=== PATIENT | female | born 2005 | race Two or more races ===

== ENCOUNTER 2024-11-15 17:42 | Emergency (ER) | payer OTHER ==
[~2024-11-15] VITALS: Ht 175.3 cm; Wt 71.2 kg
[2024-11-15 21:31] LABS: URINE APPEARANCE Cloudy; URINE BILIRRUBIN Negative (NEGATIVE); URINE BLOOD Negative; URINE COLOR Yellow; URINE KETONE Negative (NEGATIVE); URINE LEUKOCYTE Trace; URINE NITRATE Negative; URINE PROTEIN Negative (NEGATIVE)
[2024-11-15 21:32] LABS: URINE BACTERIA 3772.2 uL (0.0-1933); URINE EPITHELIAL CELLS 40.2 uL (0.0-38.8); URINE WBC 78.2 uL (0.0-23.2)
[2024-11-15 21:33] LABS: HEMATOCRIT 38.8 % (36.0-45.00); HEMOGLOBIN 13.7 g/dL (12.0-15.00); MEAN CELL VOLUME 89.7 fL (80.00-100.00); MEAN CORPUSCULAR HEMOGLOBIN 31.6 pg (27.00-32.0); MEAN CORPUSCULAR HGB CONC 35.3 g/dl (32.0-36.0); PLATELET COUNT 184 K/uL (150-450); RED BLOOD COUNT 4.33 M/uL (4.00-6.00); RED CELL DISTRIBUTION WIDTH 12.5 % (11.5-14.5)
[2024-11-15 21:43] LABS: URINE CAST 0.29 uL (0.0-1.40); URINE GLUCOSE 500 MG/DL (NEGATIVE); URINE RBC 1.1 uL (0.0-20.8)
[2024-11-15 21:55] LABS: ALBUMIN 3.5 gm/dL (3.4-5.0); BILIRUBIN TOTAL 0.25 mg/dL (0.3-1.2); CALCIUM 9.4 mg/dL (8.5-10.1); CREATININE SERUM 0.59 mg/dL (0.55-1.02); GFR 129.95; GLOBULINA 4.3 G/DL (2.4-3.5); POTASSIUM 3.73 mEq/L (3.5-5.1); TOTAL PROTEIN 7.8 gm/dL (6.4-8.2)
== END 2024-11-16 00:50 | disposition home or self-care (01) ==
LOC: ER 17:45
PROVIDERS: Preventive Medicine Public Health & General Preventive Medicine
DX: R10.30 Lower abdominal pain, unspecified (principal); Z3A.09 9 weeks gestation of pregnancy

== ENCOUNTER 2024-12-16 13:51 | Outpatient (CLI) | payer OTHER | END 2024-12-16 13:52 | disposition home or self-care (01) | LOC: PRENATAL 13:51 | PROVIDERS: ATTEND Obstetrics & Gynecology Maternal & Fetal Medicine | DX: O36.80X0 Pregnancy with inconclusive fetal viability, not applicable or unspecified (principal); Z36.82 Encounter for antenatal screening for nuchal translucency; Z36.0 Encounter for antenatal screening for chromosomal anomalies; Z14.8 Genetic carrier of other disease ==

== ENCOUNTER 2025-01-06 21:31 | Emergency (ER) | payer OTHER ==
[~2025-01-06] VITALS: Ht 172.7 cm; Wt 74.4 kg
[2025-01-06] MEDS ORDERED: VITATRUE COMBO1 EACH (21:38)
[2025-01-06 23:34] LABS: PH,URINE 6.5 (5.0-8.0); URINE APPEARANCE Cloudy; URINE BILIRRUBIN Negative (NEGATIVE); URINE BLOOD Negative; URINE COLOR Yellow; URINE KETONE Trace (NEGATIVE); URINE LEUKOCYTE Negative; URINE NITRATE Negative; URINE PROTEIN Negative (NEGATIVE)
[2025-01-06 23:37] LABS: HEMATOCRIT 35.4 % (36.0-45.00); HEMOGLOBIN 12.3 g/dL (12.0-15.00); MEAN CORPUSCULAR HEMOGLOBIN 31.2 pg (27.00-32.0); MEAN CORPUSCULAR HGB CONC 34.7 g/dl (32.0-36.0); PLATELET COUNT 148 K/uL (150-450); RED BLOOD COUNT 3.94 M/uL (4.00-6.00); RED CELL DISTRIBUTION WIDTH 12.6 % (11.5-14.5)
[2025-01-06 23:43] LABS: URINE BACTERIA 2387.8 uL (0.0-1933); URINE WBC 31.5 uL (0.0-23.2)
[2025-01-06 23:44] LABS: URINE GLUCOSE >=1000 MG/DL (NEGATIVE)
[2025-01-06 23:58] LABS: CREATININE SERUM 0.64 mg/dL (0.55-1.02); GFR 118.3; POTASSIUM 3.11 mEq/L (3.5-5.1)
== END 2025-01-07 00:35 | disposition home or self-care (01) ==
LOC: ER 21:34
PROVIDERS: Emergency Medicine
DX: O23.32 Infections of other parts of urinary tract in pregnancy, second trimester (principal); N39.0 Urinary tract infection, site not specified; Z3A.16 16 weeks gestation of pregnancy

== ENCOUNTER 2025-01-27 09:07 | Outpatient (CLI) | payer OTHER ==
[~2025-01-27 09:07] MED LIST: VITATRUE COMBO1 EACH
== END 2025-01-27 09:10 | disposition home or self-care (01) ==
LOC: PRENATAL 09:07
PROVIDERS: ATTEND Obstetrics & Gynecology Maternal & Fetal Medicine
DX: O44.00 Complete placenta previa NOS or without hemorrhage, unspecified trimester (principal); Z3A.20 20 weeks gestation of pregnancy

== ENCOUNTER → 2025-03-31 15:19 | Outpatient (CLI) | payer OTHER | END | disposition home or self-care (01) | LOC: PRENATAL 15:19 | PROVIDERS: ATTEND Obstetrics & Gynecology Maternal & Fetal Medicine | DX: O26.849 Uterine size-date discrepancy, unspecified trimester (principal); O36.8199 Decreased fetal movements, unspecified trimester, other fetus; O24.419 Gestational diabetes mellitus in pregnancy, unspecified control; Z3A.29 29 weeks gestation of pregnancy ==

== ENCOUNTER 2025-04-11 08:46 | Outpatient (CLI) | payer OTHER ==
[2025-04-11 08:03] VITALS: BP 105/58; O2SAT 98
[~2025-04-11 08:46] MED LIST changes: -ACETAMINOPHEN500 M2 PO
[2025-04-11] MEDS ORDERED: ONDANSETRON HCL 2 MG/ML VIAL ONE (09:43)
[2025-04-11] MEDS ORDERED: RINGERS SOLUTION,LACTATED 1,000 ML IV SCH (09:45)
[2025-04-11] MEDS ORDERED: ONDANSETRON 4 MG TAB.RAPDIS PO ONE (09:45)
[2025-04-11] MEDS ORDERED: ONDANSETRON HCL 2 MG/ML VIAL IV NR (09:55)
[2025-04-11] MEDS ORDERED: ACETAMINOPHEN500 M2 PO (10:15)
[2025-04-11 11:03] LABS: PH,URINE 6.5 (5.0-8.0); URINE APPEARANCE Clear; URINE BILIRRUBIN Negative (NEGATIVE); URINE BLOOD Negative; URINE COLOR Yellow; URINE LEUKOCYTE Negative; URINE NITRATE Negative; URINE PROTEIN 30 (NEGATIVE)
[2025-04-11 11:07] LABS: URINE BACTERIA 45.2 uL (0.0-1933); URINE EPITHELIAL CELLS 5.3 uL (0.0-38.8); URINE RBC 14.8 uL (0.0-20.8); URINE WBC 28.6 uL (0.0-23.2)
[2025-04-11 11:22] LABS: BASO % 0.2 % (0.1-1.2); EOS # 0.01 (0.04-0.54); EOS % 0.2 % (0.7-7.0); HEMATOCRIT 34.8 % (34.1-44.9); HEMOGLOBIN 11.8 g/dL (11.2-15.7); MEAN CORPUSCULAR HEMOGLOBIN 30.2 pg (25.6-32.2); MONO # 0.67 (0.24-0.82); NEUT # 4.26 (1.56-6.13); NEUT % 77.1 % (34.0-71.1); RED BLOOD COUNT 3.91 M/uL (3.93-5.22); RED CELL DISTRIBUTION WIDTH 13.2 % (11.6-14.4)
[2025-04-11 11:24] LABS: MONO % 12.1 % (4.7-12.5); PLATELET COUNT 117 K/uL (163-369)
[2025-04-11 11:29] LABS: URINE CAST 1.32 uL (0.0-1.40); URINE GLUCOSE 250 MG/DL (NEGATIVE); URINE KETONE 80 (NEGATIVE)
[2025-04-11 11:54] LABS: ALBUMIN 2.7 gm/dL (3.4-5.0); BILIRUBIN TOTAL 0.38 mg/dL (0.3-1.2); CALCIUM 8.5 mg/dL (8.5-10.1); CREATININE SERUM 0.41 mg/dL (0.55-1.02); GFR 197.78; GLOBULINA 3.8 G/DL (2.4-3.5); POTASSIUM 3.67 mEq/L (3.5-5.1); TOTAL PROTEIN 6.5 gm/dL (6.4-8.2)
[2025-04-11 12:53] VITALS: BP 110/67; O2SAT 99
[2025-04-11 15:08] VITALS: BP 105/68
[2025-04-11 19:34] VITALS: BP 109/58
[2025-04-11 20:36] VITALS: BP 109/58
== END 2025-04-11 20:45 | disposition home or self-care (01) ==
LOC: OBS/DEL 08:46
PROVIDERS: ATTEND Obstetrics & Gynecology
DX: O26.893 Other specified pregnancy related conditions, third trimester (principal); O26.849 Uterine size-date discrepancy, unspecified trimester; O36.8199 Decreased fetal movements, unspecified trimester, other fetus; O60.00 Preterm labor without delivery, unspecified trimester; R53.81 Other malaise; R10.9 Unspecified abdominal pain; R11.2 Nausea with vomiting, unspecified; Z3A.30 30 weeks gestation of pregnancy

== ENCOUNTER → 2025-04-11 | Emergency (ER) | payer OTHER ==
[~2025-04-11] MED LIST changes: +ACETAMINOPHEN500 M2 PO
== END | disposition home or self-care (01) ==
LOC: ER 06:34
DX: O23.33 Infections of other parts of urinary tract in pregnancy, third trimester (principal); N39.0 Urinary tract infection, site not specified; Z3A.30 30 weeks gestation of pregnancy

== ENCOUNTER → 2025-05-12 12:06 | Outpatient (CLI) | payer OTHER ==
[~2025-05-12 12:06] MED LIST changes: +ACETAMINOPHEN500 M2 PO
== END | disposition home or self-care (01) ==
LOC: PRENATAL 12:06
PROVIDERS: ATTEND Obstetrics & Gynecology Maternal & Fetal Medicine
DX: O26.849 Uterine size-date discrepancy, unspecified trimester (principal); O36.8199 Decreased fetal movements, unspecified trimester, other fetus; O24.419 Gestational diabetes mellitus in pregnancy, unspecified control; Z3A.35 35 weeks gestation of pregnancy

== ENCOUNTER 2025-06-06 09:15 | Inpatient (IN) | payer OTHER ==
[~2025-06-06] VITALS: Ht 167.6 cm; Wt 81.6 kg
[2025-06-06 09:11] VITALS: BP 116/45
[2025-06-06 13:10] VITALS: BP 124/64
[2025-06-06] MEDS ORDERED: AMPICILLIN SODIUM 2,000 MG VIAL IV STA (13:19)
[2025-06-06] MEDS ORDERED: MISOPROSTOL 25 MCG TABLET VG SCH (13:23)
[2025-06-06] MEDS ORDERED: RINGERS SOLUTION,LACTATED 1,000 ML IV SCH (13:30)
[2025-06-06] MEDS ORDERED: MISOPROSTOL 25 MCG/4 ML GEL.W.APPL VAG ONE (13:45)
[2025-06-06 13:59] LABS: BASO % 0.3 % (0.1-1.2); EOS # 0.04 (0.04-0.54); EOS % 0.4 % (0.7-7.0); LYMPH # 2.16 (1.18-3.74); LYMPH % 20.8 % (19.3-53.1); MEAN PLATELET VOLUME 13.30 fl (9.4-12.4); MONO # 0.73 (0.24-0.82); MONO % 7.0 % (4.7-12.5); NEUT # 7.36 (1.56-6.13); NEUT % 70.7 % (34.0-71.1); RED CELL DISTRIBUTION WIDTH 13.5 % (11.6-14.4); URINE APPEARANCE Turbid; URINE BILIRRUBIN Negative (NEGATIVE); URINE BLOOD Trace; URINE COLOR Yellow; URINE GLUCOSE Negative (NEGATIVE); URINE KETONE Negative (NEGATIVE); URINE LEUKOCYTE Large; URINE NITRATE Negative; URINE PROTEIN Negative (NEGATIVE); URINE UROBILINOGEN 0.2 E.U./dl
[2025-06-06 14:03] LABS: URINE CAST 1.61 uL (0.0-1.40); URINE RBC 8.6 uL (0.0-20.8); URINE WBC 2165.0 uL (0.0-23.2)
[2025-06-06 14:14] LABS: INR 0.99
[2025-06-06 14:25] LABS: TYPE CELLS SQUAMOUS; URINE BACTERIA > 9821.5 uL (0.0-1933); URINE EPITHELIAL CELLS > 201.7 uL (0.0-38.8)
[2025-06-06 14:58] LABS: ALT/SGPT 14.0 U/L (12-78); AST/SGOT 18.0 U/L (15-37); BILIRUBIN TOTAL 0.38 mg/dL (0.3-1.2); BUN CREA RATIO 10.0 (7.0-25.0); CREATININE SERUM 0.52 mg/dL (0.55-1.02); GFR 148.86; GLOBULINA 4.0 G/DL (2.4-3.5); GLUCOSE FASTING 65.0 mg/dL (65-100); OSMOLALITY SERUM 275.0 MOSM/KG (275-295)
[2025-06-06 15:10] VITALS: BP 125/61
[2025-06-06] MEDS ORDERED: AMPICILLIN SODIUM 1,000 MG VIAL IV SCH (17:00)
[2025-06-06 20:00] VITALS: BP 129/60
[2025-06-06 23:05] VITALS: BP 122/60
[2025-06-07] VITALS (8 sets, daily range): BP systolic 124–147; BP diastolic 49–78
[2025-06-07] MEDS ORDERED: MORPHINE SULFATE 4 MG/ML VIAL IV STA (08:54)
[2025-06-07] MEDS ORDERED: OXYTOCIN 500 ML IV SCH (09:00)
[2025-06-07] MEDS ORDERED: MORPHINE SULFATE 4 MG/ML CARTRIDGE IV ONE (13:00)
[2025-06-07] MEDS ORDERED: OXYTOCIN 10 UNITS/ML VIAL IM STA (17:00)
[2025-06-07] MEDS ORDERED: CHLORHEXIDINE GLUCONATE 120 ML BOTTLE TOP SCH (17:00)
[2025-06-07] MEDS ORDERED: OXYTOCIN 1,000 ML IV SCH (17:00)
[2025-06-07] MEDS ORDERED: LIDOCAINE HCL 1% 10ML VIAL IJ ONE (17:45)
[2025-06-07] MEDS ORDERED: ERYTHROMYCIN BASE OPHT 1GM EACH TUBE OP ONE (17:45)
[2025-06-07 20:20] LABS: BASO % 0.1 % (0.1-1.2); EOS # 0.01 (0.04-0.54); EOS % 0.0 % (0.7-7.0); LYMPH # 0.83 (1.18-3.74); LYMPH % 3.6 % (19.3-53.1); MEAN PLATELET VOLUME 13.60 fl (9.4-12.4); MONO # 1.20 (0.24-0.82); MONO % 5.2 % (4.7-12.5); NEUT # 20.99 (1.56-6.13); NEUT % 90.4 % (34.0-71.1); RED CELL DISTRIBUTION WIDTH 13.2 % (11.6-14.4)
[2025-06-08] VITALS: BP 113/57
[2025-06-08 08:58] VITALS: BP 105/59
[2025-06-08 13:29] VITALS: BP 109/68
[2025-06-08 16:00] VITALS: BP 95/60
[2025-06-09 00:40] VITALS: BP 103/59
[2025-06-09 08:35] VITALS: BP 118/72; O2SAT 98
== END 2025-06-09 13:19 | disposition home or self-care (01) | DRG 806 ==
LOC: OBS/DEL 09:15 → LDR 13:10 → OBS/DEL 13:10 → OB/GYN 06-07 17:08
PROVIDERS: ADMIT Obstetrics & Gynecology; ATTEND Obstetrics & Gynecology
PROC: 3E0P7VZ Introduction of Hormone into Female Reproductive, Via Natural or Artificial Opening (ICD-10-PCS; 2025-06-06)
PROC: BY4FZZZ Ultrasonography of Third Trimester, Single Fetus (ICD-10-PCS; 2025-06-06)
PROC: BU4CZZZ Ultrasonography of Uterus and Ovaries (ICD-10-PCS; 2025-06-06)
PROC: 4A1HXCZ Monitoring of Products of Conception, Cardiac Rate, External Approach (ICD-10-PCS; 2025-06-06)
PROC: 10E0XZZ Delivery of Products of Conception, External Approach (ICD-10-PCS; principal; 2025-06-07)
PROC: 0KQM0ZZ Repair Perineum Muscle, Open Approach (ICD-10-PCS; 2025-06-07)
PROC: 3E033VJ Introduction of Other Hormone into Peripheral Vein, Percutaneous Approach (ICD-10-PCS; 2025-06-07)
DX: O70.1 Second degree perineal laceration during delivery (principal); O41.03X0 Oligohydramnios, third trimester, not applicable or unspecified; Z37.0 Single live birth; O26.843 Uterine size-date discrepancy, third trimester; O36.8130 Decreased fetal movements, third trimester, not applicable or unspecified; O43.90 Unspecified placental disorder, unspecified trimester; Z3A.38 38 weeks gestation of pregnancy